=== PATIENT | female | born 1980 | race Hispanic/Latino ===

== ENCOUNTER 2017-02-02 19:58 | Inpatient (IN) | payer OTHER ==
[2017-02-02 20:10] VITALS: BMI 27.8
[2017-02-02 20:59] VITALS: RESP 18; O2SAT 99
[2017-02-02 21:03] LABS: BASO # 0.1 K/uL (0.0-0.2); BASO % 0.7 % (0.0-2.0); EOS # 0.1 K/uL (0.0-0.7); EOS % 1.3 % (0.0-4.0); HEMATOCRIT 33.8 % (34.0-47.0); LYMPH # 1.4 K/uL (1.0-4.3); LYMPH % 12.7 % (20.0-40.0); MEAN CELL VOLUME 92.2 fl (81.0-99.0); MEAN CORPUSCULAR HEMOGLOBIN 30.7 pg (27.0-31.0); MEAN CORPUSCULAR HGB CONC 33.3 g/dL (33.0-37.0); MEAN PLATELET VOLUME 11.3 fl (7.2-11.7); MONO % 9.1 % (0.0-10.0); NEUT # 8.4 K/uL (1.8-7.0); NEUT % 76.2 % (50.0-75.0)
[2017-02-02] MEDS ORDERED: Nalbuphine 20 mg/ml Inj (1 ml) IVP PRN (21:31)
[2017-02-03] MEDS ORDERED: Lactated Ringer's 1,000 ML IV SCH (10:30)
[2017-02-03] MEDS ORDERED: Oxytocin 30 units/LR 500ML 30 U/500 ML BAG IV ONE (19:53)
--- NOTE | 2017-02-03 19:57 | OBHP ---
Datetime: 02/02/2017 20:30 IP Adm Impression: Term, intrauterine IP Admit Plan: Admit to unit; Initiate labor induction protocol Admit Comment, IP Provider: CC: IOL HPI: 36 yo A1 IUP 38.3 weeks pt presents today for IOL. Pt reports feeling good, -vb.lof, +fm and some irregular ctx. Denies abd pain, F/N/V, no sob, cp, no recent injury or trauma. Pt blood type A-, RhoGam given at 28 weeks( 12/01/16) CELIA 02/12/17 based on LMP 05/08/2016. PNC: Dr Pugh office, gbs-, A-,Ab-,hiv-,rpr-,rubella immune, HBsAg-. PObH: , nvd x2 2008 and 2012, miscarriage x1 2010. PGynH: none PMH:none PSH:none Allergies: NKDA Meds: PNV SH: -etoh, tobacco, drugs. O: VSS Gen: NAD CVS: +s1s2, no m/g/r Lungs: clear to auscultation b/l Abd: gravid Ext: no edema monitoring: FHR 140, moderate variability/15 x15/category 1/no decel A/P:36 yo A1 IUP 38.3 weeks pt presents today for IOL. Admit to unit Initiate induction protocol cbc,type and screen. IV access Monitor labor progression monitoring Discussion about her condition including labor, delivery and pain management. Frank PGY 1. Pelvic Type - PN: Adequate Extremities - PN: Normal Abdomen - PN: Normal Back - PN: Not Done Breast - PN: Normal Lungs - PN: Normal Heart - PN: Normal Thyroid - PN: Not Done Neurologic - PN: Normal HEENT - PN: Normal General - PN: Normal FHR - Baseline A Provider: 140 Membranes, Provider: Intact EGA AdmitDate IP: 38.4 Vital Signs Provider: Reviewed IP Chief Complaint: Scheduled induction of labor NICHD Variability Prov Fetus A: Moderate 6-25bpm NICHD Accel Fetus A IP Provider: 15X15 FHR Category Provider Fetus A: Category I NICHD Decel Fetus A IP Provider: None Dilatation, Provider: 3 Effacement, Provider: 75 Station, Provider: -2 Genitourinary Exam: Not Done DTRs - PN: Normal
[2017-02-03] MEDS ORDERED: Lactated Ringer's 2,000 ML IV ONE (22:50)
[2017-02-03] MEDS ORDERED: Fentanyl/Bupivacaine HCl 250 ML EPI ONE (23:52)
[2017-02-03] MEDS ORDERED: Bupivacaine HCl 0.25% PF (10 ml) Inj ONE (23:52)
[2017-02-04] MEDS ORDERED: Bupivacaine HCl 0.25% PF (10 ml) Inj ONE (01:05)
[2017-02-04] MEDS ORDERED: Lidocaine 1% Inj (20ml) ONE (02:12)
[2017-02-04] MEDS ORDERED: Oxycodone/Acetaminophen 5/325 mg Tab PO PRN ×3 (02:42→04:33)
[2017-02-04] MEDS ORDERED: Benzocaine/Menthol SPRAY TOP PRN (02:42)
--- NOTE | 2017-02-04 02:43 | OBDS ---
MATERNAL INFORMATION Provider Comments: delivered live baby girl a 12:13 am, the baby ws bulb suctioned on the perineum t hen trnsferred to maternal chest. The cord was clmaped and cut 3 vessels noted. Cord blood was obtain ed and sent to the lab. The placenta was delivered at 12:25 am. There was a first degree vagina tear which was repaired with 2.0 rapide. The mother tolerated the procedure well. Baby to well baby nurser y with of 9/9 weighing 3825grams LABOR SUMMARY EDC: 02/12/2017 00:00 No. Babies in Womb: 1 LABOR INFORMATION Cervical Ripening Agents: Cyt[place] [facility] [place] B Beta Strep: Negative MEMBRANES Membranes Rupture Method: Artificial Amniotic Fluid Color: Clear Amniotic Fluid Amount: Moderate Amniotic Fluid Odor: Normal VAGINAL DELIVERY Episiotomy: None Laceration Extension: First Degree Laceration Type: Vaginal Laceration Repair: Yes Sponge Count Correct: Yes Sharps Count Correct: Yes PRESENTATION/POSITION BABY A Presentation: Cephalic
[2017-02-04] MEDS: Oxycodone/Acetaminophen 5/325 mg Tab PO PRN ×3 (05:37→18:28)
[2017-02-04] MEDS: Benzocaine/Menthol SPRAY TOP PRN (05:42)
[2017-02-04 10:57] LABS: HEMATOCRIT 29.8 % (34.0-47.0); MEAN CELL VOLUME 90.5 fl (81.0-99.0); MEAN CORPUSCULAR HEMOGLOBIN 31.5 pg (27.0-31.0); MEAN CORPUSCULAR HGB CONC 34.7 g/dL (33.0-37.0); RED CELL DISTRIBUTION WIDTH 12.9 % (11.5-14.5); WHITE BLOOD COUNT 11.8 K/uL (4.8-10.8)
[2017-02-05] MEDS: Oxycodone/Acetaminophen 5/325 mg Tab PO PRN (00:55)
--- NOTE | 2017-02-05 07:33 | OBPPN ---
Datetime: 02/05/2017 07:29 PP Pain Prov: Within normal limits PP Abdomen/Uterus Prov: Normal PP Lochia Prov: Normal PP Progress Prov: Normal PP Impression Prov: Normal progression PP Plan Prov: Continue present management PP Progress Note Prov: PPD1 s/p , breast feeding, doing well Continue current management Vital Signs Provider PP: Reviewed
[2017-02-05] MEDS: Benzocaine/Menthol SPRAY TOP PRN (08:44)
[2017-02-05] MEDS ORDERED: Influenza Vaccine 18yr & older 0.5 ML/45 MCG SYR IM ONE (09:00)
--- NOTE | 2017-02-05 13:53 | OBDCSUM ---
Datetime: 02/05/2017 13:52 Discharged to, Provider: Home Follow up at, Provider: Keaton Villarreal Instr Activity: Normal activity Disch Instr Diet: Regular Discharge Instructions, Provider: Routine instructions given Discharge Diagnosis, Provider: Term Delivered Follow up in weeks, Provider: 6 weeks Disch Referrals: None Contraception discussed, Prov: Yes Disch Activity Restrictions: No sexual activity; Nothing in vagina - [place], tampons, douche Contraception after Delivery: Undecided
[2017-02-05 14:43] VITALS: BP 140/83; PULSE 88; TEMP 98.5
== END 2017-02-05 17:05 | disposition home or self-care (01) | DRG 775 ==
LOC: H.EROB2 19:58 → H.L&D 20:11 → H.OB/GYN 02-04 05:15
PROVIDERS: ADMIT Obstetrics & Gynecology; ATTEND Obstetrics & Gynecology
PROC: 4A1HXCZ Monitoring of Products of Conception, Cardiac Rate, External Approach (ICD-10-PCS; principal; 2017-02-02)
PROC: 10E0XZZ Delivery of Products of Conception, External Approach (ICD-10-PCS; 2017-02-02)
PROC: 0HQ9XZZ Repair Perineum Skin, External Approach (ICD-10-PCS; 2017-02-02)
DX: O36.63X0 Maternal care for excessive fetal growth, third trimester, not applicable or unspecified (principal); O70.0 First degree perineal laceration during delivery; Z37.0 Single live birth; Z3A.38 38 weeks gestation of pregnancy